=== PATIENT | male | born 1995 | race Caucasian/White ===

== ENCOUNTER 2020-10-08 16:21 | Emergency (ER) | payer SELFPAY ==
[2020-10-08 16:28] VITALS: BP 126/80; PULSE 102; RESP 18; TEMP 97.9
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
--- NOTE | 2020-10-08 17:21 | XR ---
Right hand HISTORY: Pain. COMPARISON: None. TECHNIQUE: 3 views the right hand were obtained. FINDINGS: There is no fracture, dislocation, intraosseous or intra-articular abnormality. No radiopaque foreign body or abnormal soft tissue calcification. IMPRESSION: No significant abnormality seen.
== END 2020-10-08 17:50 | disposition home or self-care (01) ==
LOC: EC 16:21
DX: S63.612A Unspecified sprain of right middle finger, initial encounter (principal); W22.8XXA Striking against or struck by other objects, initial encounter; Y93.I9 Activity, other involving external motion; F12.90 Cannabis use, unspecified, uncomplicated
CPT/HCPCS: 99283